=== PATIENT | male | born 1990 | race Caucasian/White ===

== ENCOUNTER 2016-12-19 16:20 | Emergency (ER) | payer OTHER ==
[~2016-12-19] VITALS: Ht 175.3 cm; Wt 72.6 kg
[2016-12-19] MEDS ORDERED: LIDOCAINE 4% TOPICAL SOLN 50 ML BTL TOP ONE (18:00)
[2016-12-19] MEDS ORDERED: PREPGEL PR (18:02)
[2016-12-19 18:13] VITALS: BP 129/60
== END 2016-12-19 18:20 | disposition home or self-care (01) ==
LOC: M ED 17:42
DX: K64.4 Residual hemorrhoidal skin tags (principal)